=== PATIENT | female | born 1985 | race Two or more races ===

== ENCOUNTER 2023-11-07 08:10 | Emergency (ER) | payer MEDICAID, OTHER ==
[~2023-11-07] VITALS: Ht 160 cm; Wt 63.5 kg
[2023-11-07 08:13] VITALS: BP 144/73; PULSE 76; RESP 16; TEMP 97.9; O2SAT 98
[2023-11-07] MEDS ORDERED: KETOROLAC 60 MG/2 ML VIAL IM ONE (09:12)
[2023-11-07] MEDS: KETOROLAC 60 MG/2 ML VIAL IM ONE (09:15)
[2023-11-07] MEDS ORDERED: IBUP-2213 PO (09:47)
[2023-11-07] MEDS ORDERED: ACET-503 PO (09:47)
[2023-11-07 10:05] VITALS: BP 101/57; PULSE 71; RESP 16; TEMP 97.6; O2SAT 99
== END 2023-11-07 10:05 | disposition home or self-care (01) ==
LOC: MED 08:10
DX: S09.90XA Unspecified injury of head, initial encounter (principal); S90.812A Abrasion, left foot, initial encounter; V89.2XXA Person injured in unspecified motor-vehicle accident, traffic, initial encounter; Y93.89 Activity, other specified; Y92.410 Unspecified street and highway as the place of occurrence of the external cause; Y99.8 Other external cause status
CPT/HCPCS: 70450; 96372; 99285; J1885